=== PATIENT | female | born 1985 | race African-American/Black ===

== ENCOUNTER 2020-12-28 07:47 | Inpatient (IN) | payer MEDICAID, OTHER ==
[~2020-12-28] VITALS: Ht 160 cm; Wt 135.2 kg
[2020-12-28] MEDS ORDERED: METHYLERGONOVINE MALEATE 0.2 MG/ML IM PRN (08:30)
[2020-12-28] MEDS ORDERED: NALOXONE HCL 0.4 MG/ML 1ML VIAL IM PRN (08:30)
[2020-12-28] MEDS ORDERED: LACTATED RINGERS 1,000 ML IV SCH (08:30)
[2020-12-28] MEDS ORDERED: LIDOCAINE HCL 1% 20ML VIAL (Pyxis) INJ INFIL SCH (08:30)
[2020-12-28 09:17] LABS: BASOPHILS % 0.2 % (0.0-2.0); EOSINOPHILS % 0.8 % (0.0-5.0); HEMATOCRIT. 33.6 % (36.0-48.0); HEMOGLOBIN. 11.9 g/dL (12.0-16.0); LYMPHOCYTES % 17.1 % (20.0-50.0); MEAN CORPUSCULAR HEMOGLOBIN 31.3 pg (28.0-32.0); MEAN CORPUSCULAR VOLUME 88.6 fL (81.0-99.0); MEAN PLATELET VOLUME 8.1 fl (7.4-10.4); MONOCYTES % 8.5 % (2.0-8.0); NEUTROPHILS % 73.4 % (40.0-76.0); PLATELET 203 x1000/uL (130-400); RED BLOOD CELL COUNT 3.79 mill/uL (4.2-5.4); RED CELL DISTRIBUTION WIDTH 14.7 % (11.6-14.6)
[2020-12-28 09:26] LABS: CLARITY URINE CLOUDY (CLEAR); COLOR URINE YELLOW (YELLOW); KETONES URINE 1+ (NEGATIVE); LEUKOCYTE ESTERASE URINE 2+ (NEGATIVE); NITRITE URINE NEGATIVE (NEGATIVE); OCCULT BLOOD URINE NEGATIVE (NEGATIVE); PROTEIN URINE NEGATIVE (NEGATIVE); SPECIFIC GRAVITY URINE 1.022 (1.005-1.030); UROBILINOGEN URINE 0.2 E.U./dL (0.2-1.0)
[2020-12-28 09:41] LABS: INR 0.9; PARTIAL THROMBOPLASTIN TIME 31.6 sec (23.4-31.0); PROTHROMBIN TIME 10.2 sec (9.6-11.0)
[2020-12-28 10:00] LABS: *AMPHETAMINES SCREEN URINE NEGATIVE (NEGATIVE); *BARBITURATES SCREEN URINE NEGATIVE (NEGATIVE); *COCAINE SCREEN URINE NEGATIVE (NEGATIVE)
[2020-12-28 10:01] LABS: *BENZODIAZEPINES SCREEN URINE NEGATIVE (NEGATIVE); CANNABINOID URINE SCREEN NEGATIVE (NEGATIVE); METHADONE URINE SCREEN NEGATIVE (NEGATIVE); OPIATES URINE SCREEN NEGATIVE (NEGATIVE); PHENCYCLIDINE URINE SCREEN NEGATIVE (NEGATIVE)
[2020-12-28] MEDS ORDERED: MORPHINE SULFATE/PF 1MG/ML 10ML AMP ONE ×2 (10:31→10:42)
[2020-12-28] MEDS ORDERED: CEFAZOLIN SODIUM 1000MG/VIAL ONE (10:45)
[2020-12-28] MEDS ORDERED: KETOROLAC 60MG/2ML VIAL IM ONE (10:46)
[2020-12-28] MEDS ORDERED: ONDANSETRON HCL 4MG/2ML INJ ONE (10:46)
[2020-12-28] MEDS ORDERED: EPHEDRINE SULFATE 50MG/ML VIAL ONE (10:47)
[2020-12-28] MEDS ORDERED: DEXAMETHASONE 4MG/ML 1ML VIAL ONE (10:48)
[2020-12-28 12:05] LABS: HEPATITIS B SURFACE ANTIGEN NEGATIVE
[2020-12-28] MEDS ORDERED: FENTANYL CITRATE/PF 50MCG/ML 2ML VIAL ONE ×2 (13:35→14:20)
[2020-12-28] MEDS ORDERED: ONDANSETRON HCL 4MG/2ML INJ IV PRN ×2 (16:30→17:15)
[2020-12-28] MEDS ORDERED: DIPHENHYDRAMINE 50MG/ML VIAL IV PRN (16:30)
[2020-12-28] MEDS ORDERED: MEPERIDINE HCL/PF 25MG/ML CPJ IV PRN (16:30)
[2020-12-28] MEDS ORDERED: FENTANYL CITRATE/PF 50MCG/ML 2ML VIAL IV PRN ×3 (16:30)
[2020-12-28] MEDS: DEXT 5%/LR + PITOCIN 20UNITS/L 1,000 ML IV SCH (16:51)
[2020-12-28] MEDS ORDERED: IBUPROFEN 800 MG in SODIUM CHLORIDE 0.9% 250 ML IV NR (17:00)
[2020-12-28 17:15] VITALS: BP 126/64
[2020-12-28] MEDS ORDERED: DEXT 5%/LR + PITOCIN 20UNITS/L 1,000 ML IV SCH (17:15)
[2020-12-28] MEDS ORDERED: RHO(D) IMMUNE GLOBULIN 300 MCG/SYR IM PRN (17:15)
[2020-12-28] MEDS ORDERED: HYDROCODONE/ACETAMINOPHEN 5/325MG TABLET PO PRN (17:15)
[2020-12-28] MEDS ORDERED: DIPHENHYDRAMINE 25MG CAPSULE PO PRN (17:15)
[2020-12-28] MEDS ORDERED: LANOLIN OINT 7GM TUBE TOP PRN (17:15)
[2020-12-28 18:00] VITALS: BP 106/65
[2020-12-28 19:30] VITALS: BP 112/68
[2020-12-28] MEDS: KETOROLAC 30MG/ML VIAL IV PRN (21:30)
[2020-12-29] VITALS: BP 110/70
[2020-12-29] MEDS: DEXT 5%/LR + PITOCIN 20UNITS/L 1,000 ML IV SCH (02:19)
[2020-12-29 04:00] VITALS: BP 122/62
[2020-12-29] MEDS: KETOROLAC 30MG/ML VIAL IV PRN ×2 (04:04→10:43)
[2020-12-29 06:30] LABS: BASOPHILS % 0.2 % (0.0-2.0); EOSINOPHILS % 0.2 % (0.0-5.0); HEMATOCRIT. 27.1 % (36.0-48.0); HEMOGLOBIN. 9.2 g/dL (12.0-16.0); LYMPHOCYTES % 13.2 % (20.0-50.0); MEAN CORPUSCULAR HEMOGLOBIN 30.5 pg (28.0-32.0); MEAN CORPUSCULAR VOLUME 89.6 fL (81.0-99.0); MEAN PLATELET VOLUME 8.1 fl (7.4-10.4); MONOCYTES % 8.1 % (2.0-8.0); NEUTROPHILS % 78.3 % (40.0-76.0); PLATELET 178 x1000/uL (130-400); RED BLOOD CELL COUNT 3.02 mill/uL (4.2-5.4); RED CELL DISTRIBUTION WIDTH 14.8 % (11.6-14.6)
[2020-12-29 07:30] VITALS: BP 104/48
[2020-12-29] MEDS: PRENATAL VIT/FE FUMARATE/FA TABLET PO SCH (08:25)
[2020-12-29 16:30] VITALS: BP 96/56
[2020-12-29 19:30] VITALS: BP 106/64
[2020-12-29] MEDS: ACETAMINOPHEN WITH CODEINE 300/30MG TABLET PO PRN (21:04)
[2020-12-29] MEDS: IBUPROFEN 400MG TABLET PO PRN (21:36)
[2020-12-30 04:00] VITALS: BP 105/55
[2020-12-30 07:30] VITALS: BP 140/90
[2020-12-30] MEDS: PRENATAL VIT/FE FUMARATE/FA TABLET PO SCH (08:52)
[2020-12-30] MEDS: ACETAMINOPHEN WITH CODEINE 300/30MG TABLET PO PRN ×3 (08:56→21:39)
[2020-12-30 10:11] LABS: BASOPHILS % 0.4 % (0.0-2.0); EOSINOPHILS % 1.2 % (0.0-5.0); HEMATOCRIT. 28.5 % (36.0-48.0); HEMOGLOBIN. 9.4 g/dL (12.0-16.0); LYMPHOCYTES % 12.6 % (20.0-50.0); MEAN CORPUSCULAR HEMOGLOBIN 30.4 pg (28.0-32.0); MEAN CORPUSCULAR VOLUME 91.5 fL (81.0-99.0); MEAN PLATELET VOLUME 7.9 fl (7.4-10.4); MONOCYTES % 8.6 % (2.0-8.0); NEUTROPHILS % 77.2 % (40.0-76.0); PLATELET 194 x1000/uL (130-400); RED BLOOD CELL COUNT 3.11 mill/uL (4.2-5.4); RED CELL DISTRIBUTION WIDTH 14.9 % (11.6-14.6)
[2020-12-30 16:39] VITALS: BP 113/78
[2020-12-30] MEDS: IBUPROFEN 400MG TABLET PO PRN (18:00)
[2020-12-30 20:00] VITALS: BP 130/65
[2020-12-31 04:00] VITALS: BP 123/58
[2020-12-31] MEDS: ACETAMINOPHEN WITH CODEINE 300/30MG TABLET PO PRN ×3 (05:32→22:20)
[2020-12-31 07:30] VITALS: BP 136/85
[2020-12-31] MEDS: PRENATAL VIT/FE FUMARATE/FA TABLET PO SCH (08:50)
[2020-12-31] MEDS ORDERED: LIDOCAINE HCL/EPINEPHRINE 1%-EPI 1:100,000 50 ML VIAL INFIL ONE (13:15)
[2020-12-31] MEDS ORDERED: LIDOCAINE HCL/EPINEPHRINE 1%-EPI 1:100,000 20 ML VIAL INFIL ONE (13:15)
[2020-12-31] MEDS ORDERED: HYDROCODONE/ACETAMINOPHEN 5/325MG TABLET PO NR (15:00)
[2020-12-31] MEDS ORDERED: NALOXONE HCL 0.4MG/ML VIAL IV PRN (15:15)
[2020-12-31 16:30] VITALS: BP 130/72
[2020-12-31] MEDS: CEFAZOLIN 2,000 MG in DEXT 5% WATER 100 ML IV SCH (17:18)
[2020-12-31 20:00] VITALS: BP 125/68
[2021-01-01] MEDS: CEFAZOLIN 2,000 MG in DEXT 5% WATER 100 ML IV SCH ×2 (01:25→09:33)
[2021-01-01] MEDS: ACETAMINOPHEN WITH CODEINE 300/30MG TABLET PO PRN ×2 (03:18→08:25)
[2021-01-01 03:45] VITALS: BP 120/68
[2021-01-01] MEDS ORDERED: ASCO-339 MT (06:09)
[2021-01-01] MEDS ORDERED: PREN-118 MT (06:09)
[2021-01-01] MEDS ORDERED: CEPH500T MT (06:09)
[2021-01-01] MEDS ORDERED: ZINC50TA69 MT (06:09)
[2021-01-01] MEDS ORDERED: IBUP-2030 MT (06:09)
[2021-01-01 08:00] VITALS: BP 120/74
[2021-01-01] MEDS: PRENATAL VIT/FE FUMARATE/FA TABLET PO SCH (08:25)
== END 2021-01-01 12:15 | disposition home or self-care (01) | DRG 540 ==
LOC: OBSVTOIN 07:47 → 8 EST LDRP 07:47 → 8EST 17:12
PROVIDERS: ADMIT Obstetrics & Gynecology; ATTEND Obstetrics & Gynecology
PROC: 10D00Z1 Extraction of Products of Conception, Low, Open Approach (ICD-10-PCS; principal; 2020-12-28)
DX: O98.32 Other infections with a predominantly sexual mode of transmission complicating childbirth (principal); D62 Acute posthemorrhagic anemia; O34.211 Maternal care for low transverse scar from previous cesarean delivery; O67.8 Other intrapartum hemorrhage; E66.01 Morbid (severe) obesity due to excess calories; O99.214 Obesity complicating childbirth; A63.0 Anogenital (venereal) warts; Z20.822 Contact with and (suspected) exposure to COVID-19; O90.1 Disruption of perineal obstetric wound; O90.81 Anemia of the puerperium; Z3A.39 39 weeks gestation of pregnancy; Z37.0 Single live birth
CPT/HCPCS: 36415; 80305; 81003; 85025; 86592; 86703; 86762; 86850; 86900; 87340; 87426; 88307; 99281; J0690; J1100; J1741; J1885; J2274; J2405; J2590; J3010; J3490; J7040; J7050; J7060; J7120; Q0163; A4315